=== PATIENT | female | born 1965 | race Caucasian/White ===

== ENCOUNTER → 2021-12-22 15:08 | Outpatient (BNVA) | payer OTHER, SELFPAY | PROVIDERS: Visit Provider Physician Assistant | DX: E66.01 Morbid (severe) obesity due to excess calories (principal); Z68.42 Body mass index [BMI] 45.0-49.9, adult | CPT/HCPCS: 99202 ==

== ENCOUNTER 2022-05-09 19:45 | Emergency (ER) | payer OTHER, SELFPAY ==
--- NOTE | 2022-05-09 | ECG_ITS ---
Test Reason : abdominal pain Blood Pressure : / mmHG Vent. Rate : 105 BPM Atrial Rate : 105 BPM P-R Int : 132 ms QRS Dur : 072 ms QT Int : 324 ms P-R-T Axes : 052 -12 046 degrees QTc Int : 428 ms Sinus tachycardia Nonspecific ST abnormality Abnormal ECG No previous ECGs available Referred By: Generic ED Physician Electronically Signed By:KAE LEARY MD
[2022-05-09 20:17] VITALS: BP 148/101; PULSE 111; RESP 27; TEMP 36.9; O2SAT 99; BMI 44.2
[2022-05-09 20:29] LABS: MANUAL DIFF FLAG NO
[2022-05-09 20:30] LABS: Basophils Percent Auto 0.3 % (0-2); Eosinophils Percent Auto 0.3 % (0-4); Imm Gran Abs Auto 0.09 X10*3/uL (0.00-0.03); Imm Gran Pct Auto 0.7 % (0.0-0.4); Lymphocytes Absolute Auto 1.9 X10*3/uL (1.2-4.9); Lymphocytes Percent Auto 14.8 % (20-40); Mean Corpuscular Hemoglobin 25.3 pg (27.0-33.0); Mean Corpuscular Volume 84.4 fL (80.0-98.0); Mean Platelet Volume 9.8 fL (9.4-12.3); Monocytes Absolute Auto 0.7 X10*3/uL (0.1-1.2); Monocytes Percent Auto 5.9 % (2-11); Neutrophils Absolute Auto 9.8 x10*3/uL (2.0-8.3); Platelet Count 277 X10*3/uL (160-400); Red Blood Count 4.74 X10*6/uL (4.20-5.50); Red Cell Distribution Width 15.6 % (11.0-16.0); White Blood Count 12.6 X10*3/uL (4.8-10.8)
[2022-05-09 20:35] LABS: Prothrombin Time 11.9 SEC (10.0-13.1)
[2022-05-09 20:38] LABS: Partial Thromboplastin Time 27.8 SEC (26.0-36.4)
[2022-05-09 20:57] LABS: Alanine Aminotransferase 11 U/L (0-31); Albumin Level 4.4 g/dL (3.5-5.0); Alkaline Phosphatase 84 U/L (39-117); Anion Gap 17 (12-20); Aspartate Amino Transferase 9 U/L (5-31); Bilirubin Total 0.6 mg/dL (0.0-1.0); Blood Urea Nitrogen 12 mg/dL (9-16); Calcium 9.8 mg/dL (8.4-10.2); Carbon Dioxide 26 mmol/L (22-29); Chloride 101 mmol/L (96-108); Creatinine Clr Calc Pharmacy 100.5; Estimated Glomerular Filt Rate > 60; Glucose Random 165 mg/dL (60-115); Lipase 28 U/L (8-78); Potassium 4.4 mmol/L (3.3-5.1); Sodium 140 mmol/L (135-145); Total Protein 7.7 g/dL (6.5-8.0)
[2022-05-09 20:59] LABS: Troponin-I High Sensitivity 3.7 ng/L (<3.5-17.0)
== END 2022-05-09 21:17 | disposition left against medical advice (07) ==
PROVIDERS: Emergency Provider Emergency Medicine
DX: R10.9 Unspecified abdominal pain (principal); M79.10 Myalgia, unspecified site; I10 Essential (primary) hypertension; E78.00 Pure hypercholesterolemia, unspecified; E66.01 Morbid (severe) obesity due to excess calories; Z68.41 Body mass index [BMI] 40.0-44.9, adult
CPT/HCPCS: 36415; 80053; 83690; 84484; 85025; 85610; 85730; 93005; 99283

== ENCOUNTER 2023-04-04 10:17 | Outpatient (AMB) | payer OTHER, SELFPAY ==
--- NOTE | 2023-04-04 10:23 | A.OFFVIS_ITS ---
Intake VS Expanded 04/04/23 10:29 Height 5 ft 2 in Weight 270 lb 12.8 oz BMI 49.5 BP 166/71 H Blood Pressure Location Rt brachial Blood Pressure Position Sitting Pulse 62 Pulse Source Pulse Oximeter Temp 97.5 F Temperature Source Temporal Artery Scan Pulse Oximetry 95 Oxygen Delivery Method Room Air Body Fat 144.0 Body Fat Percentage 53.2 Free Fat Mass 126.8 Muscle Mass 120.4 Visceral Mass 20.0 Water Mass 90.0 BMR 1,838 Intake Visit Reasons: (OV) Re-Est [facility] BMI 41.4 Allergies No Known Allergies Allergy (Verified 04/04/23 10:31) HPI HPI Comments History of Present Illness Details 57 yo female returns for follow up in [facility] clinic. 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 She states she underwent aneurysmal repair endovascularly at [facility] [place] [place] in January, but we have no records of that. Additionally she has not gotten the aforementioned letters of approval to participate in our program. This was again explained to her and she feels as though her heart cannot take another surgery and therefore is not going to continue our program at this time. PFSH Surgical History Hx of abdominoplasty Hx of laparoscopic gastric banding History of AAA (abdominal aortic aneurysm) repair Family History Mother Diabetes High blood cholesterol Stroke Arthritis Asthma Social History Alcohol intake: never Patient Tobacco Use Status: Former Tobacco user Physical Exam Vital Signs: Last Vital Signs Temp 97.5 F 04/04/23 10:29 Pulse 62 04/04/23 10:29 BP 166/71 H 04/04/23 10:29 Pulse Ox 95 04/04/23 10:29 Oxygen Delivery Method Room Air 04/04/23 10:29 BMI result Body Mass Index 49.5 Assessment & Plan Assessment & Plan (1) Morbid obesity: Code(s): E66.01 - Morbid (severe) obesity due to excess calories Plan: not an appropriate candidate at this time, unless clearance letters from cardiology and cardiac surgery. This was again explained to the pt who expressed understanding Coding Level of Care Code Est Pt Level 1 (95367) Diagnoses Morbid obesity E66.01
[2023-04-04 10:29] VITALS: BP 166/71; PULSE 62; TEMP 36.4; O2SAT 95; BMI 49.5
== END 2023-04-04 10:54 | disposition home or self-care (01) ==
PROVIDERS: Visit Provider Physician Assistant Surgical
DX: E66.01 Morbid (severe) obesity due to excess calories (principal)

== ENCOUNTER → 2023-04-04 10:17 | Outpatient (BNVA) | payer OTHER, SELFPAY | PROVIDERS: Visit Provider Physician Assistant Surgical | DX: E66.01 Morbid (severe) obesity due to excess calories (principal); Z68.42 Body mass index [BMI] 45.0-49.9, adult | CPT/HCPCS: 99211 ==

== ENCOUNTER 2023-05-31 11:02 | Emergency (ER) | payer OTHER, SELFPAY ==
--- NOTE | ~2023-05-31 | CT_ITS ---
EXAMINATION: CT ABDOMEN AND PELVIS WITHOUT CONTRAST CLINICAL INFORMATION: Abdominal pain. COMPARISON: None available. TECHNIQUE: Multidetector volumetric imaging was performed from the superior aspect of the liver through the pubic symphysis. Sagittal and coronal reformatted images were obtained on the technologist's workstation. This CT examination was performed using dose optimization techniques as appropriate, variously including the following: *Automated exposure control *Adjustment of mA and/or kV according to patient size (this includes techniques or standardized protocols for targeted exams where dose is matched to indication/reason for exam; i.e. extremities or head) *Use of iterative reconstruction technique DLP: 1183 mGy-cm FINDINGS: LUNG BASES: 6 mm pulmonary nodule in the lingula. Small hiatal hernia. LIVER, GALLBLADDER, AND BILIARY TREE: The noncontrast liver is normal in size and contour. No focal hepatic lesion or biliary ductal dilatation is present. The gallbladder is unremarkable with no evidence of radiopaque gallstones, gallbladder wall thickening, or obvious pericholecystic inflammatory changes. PANCREAS: No ductal dilatation. SPLEEN: Not enlarged. ADRENAL GLANDS: No adrenal mass. KIDNEYS AND URETERS: The kidneys are normal in size, shape, and attenuation. No hydronephrosis, hydroureter, or calculi seen. No perinephric stranding. BLADDER: Unremarkable. GASTROINTESTINAL TRACT: Duodenal diverticulum. No small bowel obstruction. Appendix is within normal limits. ABDOMINAL WALL: No significant hernia is appreciated. LYMPH NODES: No bulky abdominal adenopathy. VASCULAR: Partial visualization of endovascular stent in the thoracic aorta. Evaluation is limited due to the lack of intravenous contrast. Proximal abdominal aorta measures 3.6 x 3.7 cm. PELVIC VISCERA: Unremarkable. OSSEOUS STRUCTURES: Marked degenerative disc disease at L3-L4. CT/CT abdomen pelvis wo IV con IMPRESSION: No acute abnormality in the abdomen or pelvis. Proximal abdominal aortic aneurysm measuring 3.6 x 3.7 cm. Recommend follow-up every 2 years. Reference: J Am Barbara Radiol 2013; 10 (10): 789-794. 6 mm lingular pulmonary nodule. Advise correlation with dedicated chest.
--- NOTE | 2023-05-31 11:11 | ECG_ITS ---
Test Reason : abd pain Blood Pressure : / mmHG Vent. Rate : 075 BPM Atrial Rate : 075 BPM P-R Int : 148 ms QRS Dur : 086 ms QT Int : 394 ms P-R-T Axes : 026 -07 027 degrees QTc Int : 439 ms Normal sinus rhythm with sinus arrhythmia Minimal voltage criteria for LVH, may be normal variant ( R in aVL ) Nonspecific ST and T wave abnormality Abnormal ECG When compared with ECG of 09-MAY-2022 20:23, Nonspecific T wave abnormality now evident in Inferior leads Nonspecific T wave abnormality now evident in Lateral leads Heart rate has decreased Referred By: Abisai Contreras Electronically Signed By:KAE LEARY MD
--- NOTE | 2023-05-31 11:12 | ED.GENADULT ---
HPI - General Adult General Chief complaint: Abdominal Pain Stated complaint: LLQ PAIN/PRESSURE FROM CLINIC PER EMS Time Seen by Provider: 05/31/23 14:07 Source: patient and EMS Mode of arrival: EMS Limitations: other (For history) History of Present Illness HPI narrative: 57-year-old female history of abdominal aortic aneurysm, osteoarthritis, hypertension, obesity, depression and, anxiety presenting for severe left lower quadrant abdominal pain that started on Monday, 3 days ago, patient was noted to have severe pain when she went to her doctor's appointment today, was advised to come in for evaluation. Patient reports that everything makes her abdominal pain worse unsure what makes it better. Some associated nausea, distension. She reports took 5 mg of oxycodone with little to no relief. Patient is moaning/crying out in pain. Denies vomiting, fevers, chills, headache, vision changes, dizziness, chest pain, shortness of breath. Reports she has had previous abdominal surgery unable to tell me what kind Related Data Home Medications Medication Instructions Recorded Confirmed albuterol sulfate 2.5 mg/3 mL mg inhalation 12/22/21 (0.083 %) solution for nebulization albuterol sulfate 90 mcg/actuation 2 puff PO QID PRN wheezing 12/22/21 aerosol inhaler (ProAir HFA) atorvastatin 80 mg tablet 80 mg PO DAILY 12/22/21 duloxetine 60 mg capsule,delayed 60 mg PO DAILY 12/22/21 release lidocaine 5 % topical patch 1 patch topical DAILY 12/22/21 melatonin 5 mg tablet 5 mg PO BEDTIME PRN insomnia 12/22/21 metoprolol tartrate 25 mg tablet 25 mg PO BID 12/22/21 pantoprazole 40 mg tablet,delayed 40 mg PO QAM 12/22/21 release polyethylene glycol 3350 17 g PO 12/22/21 gram/dose oral powder Previous Rx's Medication Instructions Recorded ketorolac 10 mg tablet 10 mg PO TID PRN pain 5 days #15 05/31/23 tabs Allergies Allergy/AdvReac Type Severity Reaction Status Date / Time No Known Allergies Allergy Verified 04/04/23 10:31 Review of Systems Review of Systems: Constitutional : No Weight loss, No Fever, No Chills, No Fatigue, No Malaise ENT/Mouth : No sore throat, No Rhinorrhea Eyes: No Eye Pain, No Swelling, No Redness Cardiovascular : No Chest Pain, No SOB, No Dyspnea on Exertion, No Orthopnea, No Edema, No Palpitations Respiratory : No Cough, No Sputum, No Wheezing Gastrointestinal : + Nausea, No Vomiting, No Diarrhea, No Constipation, + abdominal Pain, No Hematochezia, No Melena Genitourinary : No Dysuria, No Urinary Frequency, No Hematuria, Musculoskeletal : No joint pain, No Myalgias, No Joint Swelling Skin : No Skin Lesions, No rash Neuro : No Weakness, No Numbness, No Dizziness, No Headache Psych : No Anxiety/Panic, No Depression All other systems reviewed and are negative Yes all other systems are reviewed and are negative [facility] Past Medical History Attestation statement: The following information was validated with the patient. Source: old records reviewed and nursing notes reviewed Surgical History Hx of abdominoplasty Hx of laparoscopic gastric banding History of AAA (abdominal aortic aneurysm) repair Family History Family History Mother Diabetes High blood cholesterol Stroke Arthritis Asthma Social History Social History Alcohol intake: never Patient Tobacco Use Status: Former Tobacco user Smoked in Last 30 Days: No Use of substances other than those prescribed or required for medical reasons: No Advance Directives: No Advance Directives Information Provided: No Physical Exam ED Vital Signs: Vital Signs - 24 hr 05/31/23 11:15 05/31/23 12:46 05/31/23 16:30 Temperature 98.2 F 98.0 F Pulse Rate 80 84 76 Respiratory Rate 18 18 16 Blood Pressure 174/83 H 128/68 101/56 L Pulse Oximetry 96 94 98 Oxygen Delivery Method Room Air Room Air Room Air BMI result Body Mass Index 52.5 Course Reevaluation(s) Reevaluation #1: CBC appears to be around patient's baseline she is noted to have a normocytic anemia. Chemistry unremarkable no acute electrolyte abnormalities requiring intervention. Normal lactic acid. Troponin negative, EKG nonischemic, BNP within normal limits. CT of abdomen with no acute abnormality in the abdomen or pelvis, proximal abdominal aortic aneurysm measuring 3.6 x 3.7 cm, recommend follow-up every 2 years patient aware of this. 6 mm lingular pulmonary nodule noted. Again patient educated on this. Urine pending Time: 15:35 Reevaluation #2: Urine pending sign out to alejandrina MORA . Time: 16:05 Reevaluation #3: Patient's troponin negative. UA does not show any signs of infection, she is stable for discharge at this time. Time: 17:42 Medications Administered Discontinued Medications Generic Name Dose Route Start Last Admin Trade Name Lizzy PRN Reason Stop Dose Admin Hydromorphone HCl 1 mg 05/31/23 12:38 05/31/23 12:43 Hydromorphone Hcl 1 Mg/Ml Syringe IVPUSH 05/31/23 12:39 1 mg ONCE ONE Administration Protocol Ketorolac Tromethamine 15 mg 05/31/23 16:03 05/31/23 16:28 Ketorolac Tromethamine 15 Mg/Ml Vial IVPUSH 05/31/23 16:04 15 mg ONCE ONE Administration Morphine Sulfate 4 mg 05/31/23 11:20 05/31/23 11:44 Morphine Sulfate 4 Mg/Ml Cartridge IVPUSH 05/31/23 11:21 4 mg ONCE ONE Administration Protocol Medical Decision Making Medical Decision Making [facility] Narrative: 1153 Patient reports with 3 days of with severe left lower quadrant pain brought in from routine doctor's appointment. Took oxycodone without any relief Diffuse significant abdominal pain on exam worse in the left lower region. Normoactive bowel sounds. There is rebound tenderness and guarding. Patient with history of abdominal plasty and gastric band based off of chart review History and physical exam concerning for possible acute abdomen. Will rule out electrolyte derangements, urinary tract infection. Other differentials include obstruction. Unlikely dissection or ACS Plan at this time labs, imaging, urine. To patient's due to patient's presentation will obtain a CT scan with noncontrast to obtain immediate imaging. Differential Diagnosis Differential Diagnoses: The differential diagnosis associated with the presentation includes History and physical exam concerning for possible acute abdomen. Will rule out electrolyte derangements, urinary tract infection. Other differentials include obstruction. Unlikely dissection or ACS Admission/Observation Consideration of admission/observation: Escalation of care including admission/observation considered Likely Lab Data [facility] Lab Attestation statement: I reviewed the patient's lab results. 05/31/23 11:39 05/31/23 11:39 Labs: Lab Results 05/31/23 05/31/2305/31/23 Range/Units 11:39 11:40 16:27 WBC 8.0 (4.8-10.8) X10*3/uL RBC 4.32 (4.20-5.50) X10*6/uL Hgb 11.2 L (12.0-16.0) g/dl Hct 36.7 L (37.0-47.0) % MCV 85.0 (80.0-98.0) fL MCH 25.9 L (27.0-33.0) pg MCHC 30.5 L (31.0-35.0) g/dl RDW 15.9 (11.0-16.0) % Plt Count 224 (160-400) X10*3/uL MPV 9.7 (9.4-12.3) fL Immature Gran % (Auto) 0.6 H (0.0-0.4) % Neut % (Auto) 75.3 H (45-73) % Lymph % (Auto) 17.6 L (20-40) % Payne % (Auto) 6.1 (2-11) % Eos % (Auto) 0.2 (0-4) % Baso % (Auto) 0.2 (0-2) % Lymph # (Auto) 1.4 (1.2-4.9) X10*3/uL Payne # (Auto) 0.5 (0.1-1.2) X10*3/uL Eos # (Auto) 0.0 (0.0-0.4) X10*3/uL Baso # (Auto) 0.0 (0.0-0.2) X10*3/uL Abs Immat Gran (auto) 0.05 H (0.00-0.03) X10*3/uL Absolute Neuts (auto) 6.0 (2.0-8.3) x10*3/uL Absolute Nucleated RBC 0.000 (0.0-0.012) X10*3/uL Nucleated RBC % (auto) 0.0 (0.0-0.2) /100WBC Sodium 137 (135-145) mmol/L Potassium 3.4 D (3.3-5.1) mmol/L Chloride 100 (96-108) mmol/L Carbon Dioxide 28 (22-29) mmol/L Anion Gap 12 (12-20) BUN 12 (9-16) mg/dL Creatinine 0.69 (0.5-1.4) mg/dL Estim Creat Clear Calc 112.3 Estimated GFR > 60 Random Glucose 127 H (60-115) mg/dL Lactic Acid 1.4 (0.5-2.0) mmol/L Calcium 9.2 D (8.4-10.2) mg/dL Magnesium 1.6 (1.6-2.6) mg/dL Total Bilirubin 0.6 (0.0-1.0) mg/dL AST 14 (5-31) U/L ALT 8 (0-31) U/L Alkaline Phosphatase 64 (39-117) U/L Troponin I High Sens < 2.7 (<3.5-17.0) ng/L B-Natriuretic Peptide 56 (<100) pg/mL Total Protein 7.4 (6.5-8.0) g/dL Albumin 3.9 (3.5-5.0) g/dL Urine Color Urine Appearance Urine pH (5.0-9.0) Ur Specific [place] (1.005-1.025) Urine Protein (Neg-Trace) mg/dL Urine Glucose (UA) (Negative) mg/dL Urine Ketones (Negative) mg/dL Urine Blood (Negative) Urine Nitrite (Negative) Ur Leukocyte Esterase (Negative) 05/31/23 Range/Units 16:28 WBC (4.8-10.8) X10*3/uL RBC (4.20-5.50) X10*6/uL Hgb (12.0-16.0) g/dl Hct (37.0-47.0) % MCV (80.0-98.0) fL MCH (27.0-33.0) pg MCHC (31.0-35.0) g/dl RDW (11.0-16.0) % Plt Count (160-400) X10*3/uL MPV (9.4-12.3) fL Immature Gran % (Auto) (0.0-0.4) % Neut % (Auto) (45-73) % Lymph % (Auto) (20-40) % Payne % (Auto) (2-11) % Eos % (Auto) (0-4) % Baso % (Auto) (0-2) % Lymph # (Auto) (1.2-4.9) X10*3/uL Payne # (Auto) (0.1-1.2) X10*3/uL Eos # (Auto) (0.0-0.4) X10*3/uL Baso # (Auto) (0.0-0.2) X10*3/uL Abs Immat Gran (auto) (0.00-0.03) X10*3/uL Absolute Neuts (auto) (2.0-8.3) x10*3/uL Absolute Nucleated RBC (0.0-0.012) X10*3/uL Nucleated RBC % (auto) (0.0-0.2) /100WBC Sodium (135-145) mmol/L Potassium (3.3-5.1) mmol/L Chloride (96-108) mmol/L Carbon Dioxide (22-29) mmol/L Anion Gap (12-20) BUN (9-16) mg/dL Creatinine (0.5-1.4) mg/dL Estim Creat Clear Calc Estimated GFR Random Glucose (60-115) mg/dL Lactic Acid (0.5-2.0) mmol/L Calcium (8.4-10.2) mg/dL Magnesium (1.6-2.6) mg/dL Total Bilirubin (0.0-1.0) mg/dL AST (5-31) U/L ALT (0-31) U/L Alkaline Phosphatase (39-117) U/L Troponin I High Sens (<3.5-17.0) ng/L B-Natriuretic Peptide (<100) pg/mL Total Protein (6.5-8.0) g/dL Albumin (3.5-5.0) g/dL Urine Color Yellow Urine Appearance Clear Urine pH 6.0 (5.0-9.0) Ur Specific [place] 1.025 (1.005-1.025) Urine Protein Negative (Neg-Trace) mg/dL Urine Glucose (UA) Negative (Negative) mg/dL Urine Ketones 15 (Negative) mg/dL Urine Blood Negative (Negative) Urine Nitrite Negative (Negative) Ur Leukocyte Esterase Negative (Negative) Independent Interpretation I performed an independent interpretation of an: EKG (Sinus rhythm with sinus arrhythmia. The patient does have isoelectric T-waves in the anteriolateral leads when compared to EKG from April of last year.) and CT Scan Radiology Impression Discussion of test interpretation with radiology: I have reviewed the radiologist's reading. External Record Review External record reviewed: Inpatient record, Office record, Outpatient record, Prior outpatient labs, Prior outpatient radiology and Primary care record Chronic Conditions Patient?s care impacted by: Hypertension and Other (obesity ) Critical Care Time Critical Care Time Critical Care Time: No Discharge Plan Discharge Clinical Impression: Abdominal pain Patient Disposition: Home, Self-Care Instructions: Abdominal Pain (ED) Additional Instructions: You did have some minor EKG changes. Follows up with your primary doctor in you may also follow-up with Dr. Montgomery, cardiology Take your medications as prescribed. If you were prescribed antibiotics today, it is important that you take your medication to their entirety, do not skip any doses, do not finish them early. Follow-up with your primary care provider this week. Return to the emergency department with new or worsening symptoms. Such as fevers, chills, chest pain, shortness of breath, nausea, vomiting, dizziness, headache, vision changes, lethargy In case of emergency call 911 Toradol has been sent to your pharmacy, you tolerated this well in the department. Please take this as prescribed do not take this with ibuprofen, or other NSAIDs, do not mix this with alcohol. Side effects of this medication including increased risk for bleeding and possible kidney injury. Prescriptions: New ketorolac 10 mg tablet 10 mg PO TID PRN (Reason: pain) 5 Days Qty: 15 0RF No Action pantoprazole 40 mg tablet,delayed release (DR/EC) 40 mg PO QAM metoprolol tartrate 25 mg tablet 25 mg PO BID duloxetine 60 mg capsule,delayed release(DR/EC) 60 mg PO DAILY melatonin 5 mg tablet 5 mg PO BEDTIME PRN (Reason: insomnia) polyethylene glycol 3350 17 gram/dose powder PO albuterol sulfate [ProAir HFA] 90 mcg/actuation HFA aerosol inhaler 2 puff PO QID PRN (Reason: wheezing) atorvastatin 80 mg tablet 80 mg PO DAILY lidocaine 5 % adhesive patch,medicated 1 patch topical DAILY albuterol sulfate 2.5 mg /3 mL (0.083 %) solution for nebulization inhalation Referrals: Physician,Unknown J [Primary Care Provider] - 2 days Marbin Montgomery MD [Physician] - (EKG changes) Stand Alone Forms: Work/School Release
[2023-05-31 11:15] VITALS: BP 142/82; BP 174/83; PULSE 63; PULSE 80; RESP 18; TEMP 36.8; O2SAT 96; BMI 52.5
--- NOTE | 2023-05-31 11:22 | PC.NURSE ---
pt comes from PCP office for severe LLQ pain. pt appears to be in distress, crying and moaning in pain. pt sts she took her oxycodone this am, 5mg, and no pain relief. pt awaiting to be seen by provider. pt within eye sight of this RN. call sanz within pt reach. rr even/unlabored. plan of care ongoing.
[2023-05-31] MEDS: Morphine Sulfate 4 MG/ML CARTRIDGE IVPUSH (11:44)
[2023-05-31 11:45] LABS: MANUAL DIFF FLAG NO
[2023-05-31 11:47] LABS: Basophils Percent Auto 0.2 % (0-2); Eosinophils Percent Auto 0.2 % (0-4); Hematocrit 36.7 % (37.0-47.0); Hemoglobin 11.2 g/dl (12.0-16.0); Imm Gran Abs Auto 0.05 X10*3/uL (0.00-0.03); Imm Gran Pct Auto 0.6 % (0.0-0.4); Lymphocytes Absolute Auto 1.4 X10*3/uL (1.2-4.9); Lymphocytes Percent Auto 17.6 % (20-40); Mean Corpuscular HGB Conc 30.5 g/dl (31.0-35.0); Mean Corpuscular Hemoglobin 25.9 pg (27.0-33.0); Mean Platelet Volume 9.7 fL (9.4-12.3); Monocytes Absolute Auto 0.5 X10*3/uL (0.1-1.2); Monocytes Percent Auto 6.1 % (2-11); Neutrophils Percent Auto 75.3 % (45-73); Platelet Count 224 X10*3/uL (160-400); Red Blood Count 4.32 X10*6/uL (4.20-5.50); Red Cell Distribution Width 15.9 % (11.0-16.0)
[2023-05-31 11:59] LABS: Lactic Acid 1.4 mmol/L (0.5-2.0)
[2023-05-31 12:04] LABS: Alanine Aminotransferase 8 U/L (0-31); Albumin Level 3.9 g/dL (3.5-5.0); Alkaline Phosphatase 64 U/L (39-117); Anion Gap 12 (12-20); Aspartate Amino Transferase 14 U/L (5-31); Bilirubin Total 0.6 mg/dL (0.0-1.0); Blood Urea Nitrogen 12 mg/dL (9-16); Calcium 9.2 mg/dL (8.4-10.2); Carbon Dioxide 28 mmol/L (22-29); Chloride 100 mmol/L (96-108); Creatinine Clr Calc Pharmacy 112.3; Estimated Glomerular Filt Rate > 60; Glucose Random 127 mg/dL (60-115); Magnesium 1.6 mg/dL (1.6-2.6); Potassium 3.4 mmol/L (3.3-5.1); Sodium 137 mmol/L (135-145); Total Protein 7.4 g/dL (6.5-8.0)
[2023-05-31 12:08] LABS: B Type Natriuretic Peptide 56 pg/mL (<100)
--- NOTE | 2023-05-31 12:14 | PC.NURSE ---
20G IV placed to LAC, labs drawn and sent. pt medicated per sep and brought to CT scan. pt still in distress, no little to no pain relief. plan of care ongoing.
[2023-05-31] MEDS: HYDROmorphone HCl 1 MG/ML SYRINGE IVPUSH (12:43)
[2023-05-31 12:46] VITALS: BP 128/68; PULSE 84; RESP 18; O2SAT 94
--- NOTE | 2023-05-31 12:48 | MHC.EDTECH ---
Brought patient a warm blanket.
--- NOTE | 2023-05-31 13:03 | PC.NURSE ---
pt medicated per sep for pain. immediate relief. pt O2 sats dropped to mid 80s. no pt hx of COPD. pt placed on 2L NC, pt sating 95%. pt currently resting quietly on stretcher. pt sister and grandson at bedside. call sanz within pt reach.
[2023-05-31] MEDS: Ketorolac Tromethamine 15 MG/ML VIAL IVPUSH (16:28)
[2023-05-31 16:30] VITALS: BP 101/56; PULSE 76; RESP 16; TEMP 36.7; O2SAT 98
--- NOTE | 2023-05-31 16:31 | MHC.EDTECH ---
This pct assumed care of pt at 1500 ,vitals taken ,urine sample collected and repeated trop drawn all sent to lab .
[2023-05-31 16:37] LABS: Appearance Urine Clear; Color Urine Yellow; Glucose Urine UA Negative (Negative); Leukocyte Esterase Urine Negative (Negative); Nitrite Urine Negative (Negative); Specific Gravity - Urine 1.025 (1.005-1.025); Urine Blood Negative (Negative); Urine Ketones 15 mg/dL (Negative); Urine Protein Negative (Neg-Trace)
--- NOTE | 2023-05-31 16:37 | PC.NURSE ---
pt changed back into own clothes, she thought she was being discharged? troponin redrawn and UA sent. pt medicated again for pain. pt currently resting quietly on stretcher in no apparent distress. rr even unlabored. grandson at bedside. plan of care ongoing.
[2023-05-31 17:09] LABS: Troponin-I High Sensitivity < 2.7 ng/L (<3.5-17.0)
== END 2023-05-31 17:55 | disposition home or self-care (01) ==
PROVIDERS: Physician Assistant; Emergency Provider Student in an Organized Health Care Education/Training Program
DX: R10.32 Left lower quadrant pain (principal); R11.2 Nausea with vomiting, unspecified; I49.8 Other specified cardiac arrhythmias; R06.02 Shortness of breath; Z79.899 Other long term (current) drug therapy
CPT/HCPCS: 36415; 74176; 80053; 81003; 83605; 83735; 83880; 84484; 85025; 87040; 93005; 96374; 96375; 99284; 99285; J1170; J1885; J2270

== ENCOUNTER 2023-06-01 08:53 | Emergency (ER) | payer OTHER, SELFPAY ==
--- NOTE | ~2023-06-01 | CT_ITS ---
EXAMINATION: CT ABDOMEN AND PELVIS WITH CONTRAST CLINICAL INFORMATION: Left-sided abdominal COMPARISON: None available. TECHNIQUE: Multidetector volumetric images were obtained from the superior aspect of the liver through the pubic symphysis following administration 85 mL of Omnipaque 350 intravenous contrast. Sagittal and coronal reformatted images were obtained on the technologist's workstation. Oral contrast: No This CT examination was performed using dose optimization techniques as appropriate, variously including the following: *Automated exposure control *Adjustment of mA and/or kV according to patient size (this includes techniques or standardized protocols for targeted exams where dose is matched to indication/reason for exam; i.e. extremities or head) *Use of iterative reconstruction technique DLP: 1573 mGy-cm FINDINGS: LUNG BASES: Basilar atelectasis is present. LIVER, GALLBLADDER, AND BILIARY TREE: The liver is enlarged at 20 cm in greatest length and demonstrates decreased attenuation consistent with hepatic steatosis. In size, shape, and attenuation. No focal hepatic lesion or biliary ductal dilatation is present. The gallbladder is unremarkable with no evidence of radiopaque gallstones, gallbladder wall thickening, or obvious pericholecystic inflammatory changes. PANCREAS: Unremarkable. SPLEEN: Spleen is enlarged at 13.4 cm in greatest dimension. ADRENAL GLANDS: Unremarkable. KIDNEYS AND URETERS: The kidneys are normal in size, shape, and attenuation. No hydronephrosis, hydroureter, or calculi seen. A benign 0.6 cm left cortical Bosniak class I renal cyst is noted which requires no additional imaging or follow up. No solid renal masses are seen. No perinephric stranding. BLADDER: Unremarkable. GASTROINTESTINAL TRACT: The small and large bowel are unremarkable. The appendix is unremarkable. ABDOMINAL WALL: No significant hernia is appreciated. There is a tiny periumbilical hernia seen containing only fat and a left lower quadrant vertical scar. LYMPH NODES: No retroperitoneal lymphadenopathy. VASCULAR: The distal end of the thoracic aortic stent graft is seen. There is unusual anatomy involving the upper abdominal aorta which demonstrates mild aneurysmal dilatation at about 3.7 cm when measurements are made perpendicular to a center line. 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 The right renal artery arises from the smaller false lumen. The celiac and SMA appear to arise from a common trunk off of the true lumen which is either a congenital variant or possibly postsurgical. The left renal artery arises very close to this or possibly from this trunk. The LEONARDO is patent arising normally from the infrarenal abdominal aorta. The iliofemoral vessels are unremarkable aside from some calcific plaque. PELVIC VISCERA: The uterus and adnexa are unremarkable. OSSEOUS STRUCTURES: Degenerative changes are again seen in the spine most marked from L2 through L4. No bony destructive lesion CT/CT abdomen pelvis w IV con IMPRESSION: 1. There is an unusual anatomy involving the upper abdominal aorta which demonstrates mild aneurysmal dilatation at about 3.7 cm when measurements are made perpendicular to a center line. 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 The celiac and SMA appear to arise from a common trunk off of the true lumen which is either a congenital variant or possibly postsurgical. The right renal artery arises from the smaller false lumen. The left renal artery arises very close to this or possibly from this trunk. All of this would be better defined with a CT angiogram performed electively. A worrisome critical finding does not appear to be present. 2. Incidental note made of hepatosplenomegaly, hepatic steatosis and degenerative changes in the spine. Aorta recommendation: Continued follow-up with vascular specialist. Fleischner guidelines were followed.
[2023-06-01 08:59] VITALS: BP 152/97; PULSE 82; O2SAT 98
[2023-06-01 09:06] VITALS: BP 139/76; PULSE 99; RESP 20; TEMP 36.8; O2SAT 98; BMI 50.8
[2023-06-01 09:15] VITALS: BP 108/60; PULSE 55; RESP 18; TEMP 36.5; O2SAT 98
--- NOTE | 2023-06-01 09:18 | ED_ITS ---
HPI - Abdominal Pain General Chief Complaint: Abdominal Pain Stated Complaint: abd pain since monday,seen for same t-1 per ems Time Seen by Provider: 06/01/23 09:08 Source: patient Mode of arrival: EMS History of Present Illness HPI narrative: 57-year-old female arrives via EMS with reports of pain and nausea but denies any vomiting, patient was evaluated here yesterday [place]. She continues to have concerns for left-sided back pain and states that her last bowel movement was yesterday and otherwise denies any hematuria/dysuria. Patient was evaluated at [facility] on Monday as well. Related Data Home Medications Medication Instructions Recorded Confirmed albuterol sulfate 2.5 mg/3 mL mg inhalation 12/22/21 (0.083 %) solution for nebulization albuterol sulfate 90 mcg/actuation 2 puff PO QID PRN wheezing 12/22/21 aerosol inhaler (ProAir HFA) atorvastatin 80 mg tablet 80 mg PO DAILY 12/22/21 duloxetine 60 mg capsule,delayed 60 mg PO DAILY 12/22/21 release lidocaine 5 % topical patch 1 patch topical DAILY 12/22/21 melatonin 5 mg tablet 5 mg PO BEDTIME PRN insomnia 12/22/21 metoprolol tartrate 25 mg tablet 25 mg PO BID 12/22/21 pantoprazole 40 mg tablet,delayed 40 mg PO QAM 12/22/21 release polyethylene glycol 3350 17 g PO 12/22/21 gram/dose oral powder Previous Rx's Medication Instructions Recorded ketorolac 10 mg tablet 10 mg PO TID PRN pain 5 days #15 05/31/23 tabs Allergies Allergy/AdvReac Type Severity Reaction Status Date / Time No Known Allergies Allergy Verified 06/01/23 09:06 Review of Systems Review of Systems Pertinent positives and negatives as stated in HPI PMFSH Past Medical History Source: nursing notes reviewed Surgical History Hx of abdominoplasty Hx of laparoscopic gastric banding History of AAA (abdominal aortic aneurysm) repair Family History Family History Mother Diabetes High blood cholesterol Stroke Arthritis Asthma Social History Social History Alcohol intake: never Patient Tobacco Use Status: Former Tobacco user Smoked in Last 30 Days: No Use of substances other than those prescribed or required for medical reasons: No Advance Directives: No Advance Directives Information Provided: Yes Physical Exam ED Vital Signs: Vital Signs - 24 hr 06/01/23 09:06 06/01/23 09:15 Temperature 98.3 F 97.7 F Pulse Rate 99 55 Respiratory Rate 20 18 Blood Pressure 139/76 108/60 Pulse Oximetry 98 98 Oxygen Delivery Method Room Air Room Air BMI result Body Mass Index 50.8 VITAL SIGNS: Reviewed. GENERAL: Elevated BMI, Well developed, well nourished, in moderate distress. HEAD: Normocephalic/atraumatic EYES: PERRLA, EOMI EARS: Ext canals without abnormality NOSE: Nares patent bilateral OROPHARYNX: no oral lesions noted, posterior pharynx clear NECK: Supple, no adenopathy LUNGS: Normal breath sounds. No adventitious sounds or accessory muscle use. SpO2<98> CARDIOVASCULAR: Regular rate and rhythm without noted murmurs ABDOMEN: Soft, non-tender, non-distended with bowel sounds. MUSCULOSKELETAL: No tenderness, deformities, or effusions noted on gross inspection. EXTREMITIES: No cyanosis, clubbing or edema. SKIN: Inspection of the skin reveals no rashes, ulcerations NEUROLOGIC: Alert and oriented x 4. Strength and sensation to light touch were grossly intact x 4. Medical Decision Making Medical Decision Making MDM Narrative: 57-year-old female with history and clinical presentation concerning for possi ble drug-seeking behavior as she has had a complete evaluation yesterday, there was no noted bony/vertebral findings there was no intra-abdominal suggestion infectious etiology or constipation or obstruction, no evidence to suggest renal colic, urinalysis was clear. Patient comes in again by EMS demanding further pain medications and explicitly asking for oxycodone she is otherwise hemodynamically stable and will undergo CT abdomen and pelvis with both IV and oral contrast. She does have extensive history vascular disease as well as hypertension. 1156: CT scan with IV contrast of abdomen and pelvis has not been read at this time and patient wishes to sign out against medical advice. Differential Diagnosis Differential Diagnoses: The differential diagnosis associated with the presentation includes Please see the discussion above Admission/Observation Consideration of admission/observation: Escalation of care including admission/observation considered Please see the discussion above External Record Review External record reviewed: Outpatient record, Prior outpatient labs and Prior outpatient radiology Chronic Conditions Patient?s care impacted by: Hypertension PAD Medications Administered Discontinued Medications Generic Name Dose Route Start Last Admin Trade Name Lizzy PRN Reason Stop Dose Admin Acetaminophen 975 mg 06/01/23 11:04 06/01/23 11:30 Acetaminophen 325 Mg Tablet PO 06/01/23 11:05 975 mg ONCE ONE Administration Sodium Chloride 1,000 mls @ 999 mls/hr 06/01/23 09:30 06/01/23 09:45 Ns IV 06/01/23 10:30 999 mls/hr .Q1H1M MILTON Administration Iohexol 85 ml 06/01/23 10:41 06/01/23 10:41 Iohexol 350 Mg/Ml 100 Ml Infus..Btl IV 06/01/23 10:42 85 ml ONCE ONE Administration Ketorolac Tromethamine 15 mg 06/01/23 09:21 06/01/23 09:46 Ketorolac Tromethamine 30 Mg/Ml Vial IVPUSH 06/01/23 09:22 15 mg ONCE ONE Administration Discharge Plan Discharge Clinical Impression: Chronic abdominal pain Patient Disposition: Left Against Medical Advice Instructions: Chronic Pain (ED), Chronic Abdominal Pain (ED) Additional Instructions: I highly recommend that you follow-up with your primary care doctor and discuss the possibility of a referral for chronic pain. You understand that you are leaving prior to completion of your evaluation. Prescriptions: No Action ketorolac 10 mg tablet 10 mg PO TID PRN (Reason: pain) 5 Days Qty: 15 0RF pantoprazole 40 mg tablet,delayed release (DR/EC) 40 mg PO QAM metoprolol tartrate 25 mg tablet 25 mg PO BID duloxetine 60 mg capsule,delayed release(DR/EC) 60 mg PO DAILY melatonin 5 mg tablet 5 mg PO BEDTIME PRN (Reason: insomnia) polyethylene glycol 3350 17 gram/dose powder PO albuterol sulfate [ProAir HFA] 90 mcg/actuation HFA aerosol inhaler 2 puff PO QID PRN (Reason: wheezing) atorvastatin 80 mg tablet 80 mg PO DAILY lidocaine 5 % adhesive patch,medicated 1 patch topical DAILY albuterol sulfate 2.5 mg /3 mL (0.083 %) solution for nebulization inhalation Stand Alone Forms: Against Medical Advice Print Language: Israeli
[2023-06-01] MEDS: 0.9 % Sodium Chloride 1,000 ML 999 ML IV (09:45)
--- NOTE | 2023-06-01 09:45 | PC.NURSE ---
IV placed, toradol given for abdominal pain. MD Diego aware pt c/o abdominal pain.
[2023-06-01] MEDS: Ketorolac Tromethamine 30 MG/ML VIAL 15 MG IVPUSH (09:46)
--- NOTE | 2023-06-01 10:00 | PC.NURSE ---
MD Diego asked by RN for potential addt'l pain med per pt request as pt state toradol did not improve her pain much. MD Diego stated at this time to defer for CT scan test- pt going to CT.
[2023-06-01] MEDS: iohexoL 350 MG/ML 100 ML INFUS..BTL 85 ML IV (10:41)
--- NOTE | 2023-06-01 11:15 | PC.NURSE ---
Pt continues to c/o abd pain- MD Diego aware and ordering tylenol.
[2023-06-01] MEDS: Acetaminophen 325 MG TABLET 975 MG PO (11:30)
--- NOTE | 2023-06-01 12:08 | PC.NURSE ---
pt left w/o papers. iv removed. able to walk out w/o issues with no respiratory difficulty. +CMS. MD Diego aware pt wanted to leave AMA. Pt declined fresh set of VS. Resp Rate 18.
== END 2023-06-01 12:11 | disposition left against medical advice (07) ==
PROVIDERS: Emergency Provider Student in an Organized Health Care Education/Training Program
DX: G89.29 Other chronic pain (principal); R10.9 Unspecified abdominal pain; E78.00 Pure hypercholesterolemia, unspecified; I10 Essential (primary) hypertension; E66.01 Morbid (severe) obesity due to excess calories; Z68.43 Body mass index [BMI] 50.0-59.9, adult; Z87.891 Personal history of nicotine dependence; Z98.84 Bariatric surgery status; Z79.899 Other long term (current) drug therapy
CPT/HCPCS: 74177; 96361; 96374; 99284; 99285; J1885; Q9967